=== PATIENT | female | born 2005 | race Caucasian/White ===

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

== ENCOUNTER → 2023-09-10 | Outpatient (REF) | LOC: M EMP 10:57 | PROVIDERS: ATTEND Family Medicine | DX: Z11.52 Encounter for screening for COVID-19 (principal) ==

== ENCOUNTER 2023-12-29 10:04 | Emergency (ER) | payer BC, OTHER ==
[~2023-12-29] VITALS: Ht 157.5 cm; Wt 102.8 kg
[~2023-12-29 10:04] MED LIST changes: +AMPH1CAP16; +ARIP1TAB6; +CLON0.5T2; +TEST200I14; +TRAZ-257
[2023-12-29] MEDS ORDERED: BENZ-18 (11:28)
[2023-12-29 13:00] VITALS: BP 121/81; TEMP 97.7; O2SAT 100
== END 2023-12-29 13:01 | disposition home or self-care (01) ==
LOC: M ED 10:04
DX: J06.9 Acute upper respiratory infection, unspecified (principal); F90.9 Attention-deficit hyperactivity disorder, unspecified type; F43.10 Post-traumatic stress disorder, unspecified; F41.9 Anxiety disorder, unspecified; F32.A Depression, unspecified; F64.0 Transsexualism; Z87.891 Personal history of nicotine dependence; Z91.018 Allergy to other foods; Z79.899 Other long term (current) drug therapy

== ENCOUNTER 2024-01-27 04:36 | Emergency (ER) | payer BC, OTHER ==
[~2024-01-27] VITALS: Ht 157.5 cm; Wt 100.0 kg
[~2024-01-27 04:36] MED LIST changes: +BENZ-18
[2024-01-27] MEDS: ONDANSETRON 4MG 2ML VIAL IV ONE (06:24)
[2024-01-27] MEDS: KETOROLAC 30 MG/ML 1ML VIAL IV ONE (06:26)
[2024-01-27 06:36] LABS: BASO # 0.1 10^3/uL (0.0-0.2); BASO % 0.7 % (0.0-1.0); EOS # 0.1 10^3/uL (0.0-0.5); EOS % 1.1 % (0.0-3.0); HEMATOCRIT 47.3 % (42.0-52.0); HEMOGLOBIN 15.6 g/dl (13.5-17.5); LYMPH # 2.1 10^3/uL (1.5-5.0); LYMPH % 24.7 % (24.0-44.0); MEAN CORPUSCULAR HEMOGLOBIN 31.8 pg (27.0-33.0); MEAN CORPUSCULAR VOLUME 96.5 fl (80.0-96.0); MONO # 0.7 10^3/uL (0.0-0.8); MONO % 7.8 % (2.0-8.0); NEUTROPHILS # 5.5 10^3/uL (1.5-8.5); NEUTROPHILS % 65.3 % (36.0-66.0); PLATELET COUNT, AUTOMATED 210 10^3/uL (150-450); WHITE BLOOD COUNT 8.5 10^3/uL (4.0-10.0)
[2024-01-27] MEDS ORDERED: ISOVUE-370 76% 100ML VIAL As Ordered ONE (06:42)
[2024-01-27 07:23] LABS: HCG, SERUM QUALITATIVE NEGATIVE
[2024-01-27] MEDS ORDERED: IBUP200T46 PO (08:13)
[2024-01-27] MEDS ORDERED: MORPHINE 2 MG/ML 1ML VIAL IV ONE (08:20)
[2024-01-27] MEDS: ACETAMINOPHEN 500 MG TAB PO ONE (08:35)
[2024-01-27 09:08] VITALS: BP 122/65; TEMP 98.5; O2SAT 100
[2024-01-27] MEDS ORDERED: KETO10TAB PO (22:19)
== END 2024-01-27 09:31 | disposition home or self-care (01) ==
LOC: EDSEX 04:36 → M ED 04:36 → EDBD 04:36 → M ED 09:31
DX: R10.31 Right lower quadrant pain (principal); Z91.018 Allergy to other foods; Z79.2 Long term (current) use of antibiotics; Z79.899 Other long term (current) drug therapy
CPT/HCPCS: 74177; 80047; 81001; 83605; 84703; 85025; 96374; 96375; 99284; J1885; J2405; Q9967

== ENCOUNTER 2024-01-27 19:46 | Emergency (ER) | payer OTHER ==
[~2024-01-27] VITALS: Ht 157.5 cm; Wt 100.0 kg
[~2024-01-27 19:46] MED LIST changes: +IBUP200T46 PO
[2024-01-27] MEDS ORDERED: KETO10TAB PO (22:19)
[2024-01-27 22:27] VITALS: BP 129/59; TEMP 98.4; O2SAT 97
[2024-01-27] MEDS: KETOROLAC TROMETHAMINE 10 MG TAB PO ONE (22:28)
== END 2024-01-27 22:34 | disposition home or self-care (01) ==
LOC: M ED 19:46
DX: R10.31 Right lower quadrant pain (principal); Z91.018 Allergy to other foods; Z79.2 Long term (current) use of antibiotics; Z79.899 Other long term (current) drug therapy

== ENCOUNTER → 2024-03-23 | Outpatient (REF) | payer OTHER ==
[~2024-03-23] MED LIST changes: +KETO10TAB PO
[2024-03-23 15:59] LABS: HEMATOCRIT 44.7 % (42.0-52.0); HEMOGLOBIN 15.1 g/dl (13.5-17.5); MEAN CORPUSCULAR HEMOGLOBIN 31.8 pg (27.0-33.0); MEAN CORPUSCULAR HGB CONC 33.8 g/dl (32.0-36.5); MEAN CORPUSCULAR VOLUME 94.1 fl (80.0-96.0); PLATELET COUNT, AUTOMATED 243 10^3/uL (150-450); RED BLOOD COUNT 4.75 10^6/uL (4.30-6.10); WHITE BLOOD COUNT 10.1 10^3/uL (4.0-10.0)
== END ==
LOC: M LAB REF 15:37
PROVIDERS: ATTEND Physician Assistant Medical
DX: F64.0 Transsexualism (principal)

== ENCOUNTER 2024-05-05 05:46 | Emergency (ER) | payer OTHER ==
[~2024-05-05] VITALS: Ht 160 cm; Wt 112.7 kg
[2024-05-05] MEDS: ONDANSETRON 4MG 2ML VIAL IV ONE (10:13)
[2024-05-05] MEDS: PANTOPRAZOLE 40MG VIAL IV ONE (10:13)
[2024-05-05 10:54] LABS: BASO # 0.1 10^3/uL (0.0-0.2); BASO % 0.5 % (0.0-1.0); EOS # 0.1 10^3/uL (0.0-0.5); EOS % 1.3 % (0.0-3.0); HEMATOCRIT 44.9 % (42.0-52.0); HEMOGLOBIN 15.3 g/dl (13.5-17.5); LYMPH # 2.1 10^3/uL (1.5-5.0); LYMPH % 20.6 % (24.0-44.0); MEAN CORPUSCULAR HGB CONC 34.1 g/dl (32.0-36.5); MEAN CORPUSCULAR VOLUME 90.9 fl (80.0-96.0); MONO # 0.7 10^3/uL (0.0-0.8); MONO % 6.9 % (2.0-8.0); NEUTROPHILS # 7.3 10^3/uL (1.5-8.5); NEUTROPHILS % 70.2 % (36.0-66.0); PLATELET COUNT, AUTOMATED 292 10^3/uL (150-450); RED BLOOD COUNT 4.94 10^6/uL (4.30-6.10); WHITE BLOOD COUNT 10.3 10^3/uL (4.0-10.0)
[2024-05-05 11:17] LABS: ALBUMIN 3.3 G/DL (3.2-5.2); ALKALINE PHOSPHATASE 98 U/L (40-129); ALT/SGPT 22 U/L (7.0-40); AST/SGOT 13 U/L (<34); BILIRUBIN,DIRECT 0.2 MG/DL (<0.4); BILIRUBIN,TOTAL 0.5 MG/DL (0.3-1.2); BLOOD UREA NITROGEN 10 MG/DL (9-23); CALCIUM LEVEL 8.9 MG/DL (8.5-10.1); CARBON DIOXIDE LEVEL 26 MMOL/L (20-31); CHLORIDE LEVEL 105 MMOL/L (98-107); CREATININE FOR GFR 0.78 MG/DL (0.70-1.30); GLUCOSE, FASTING 87 MG/DL (60-100); SODIUM LEVEL 142 MMOL/L (136-145); TOTAL PROTEIN 6.9 G/DL (5.7-8.2)
[2024-05-05 12:00] VITALS: BP 113/70; TEMP 98.2
[2024-05-05] MEDS ORDERED: BENZ200C70 PO (12:14)
[2024-05-05] MEDS ORDERED: AMOX875T PO (12:14)
[2024-05-05 12:16] VITALS: O2SAT 97
== END 2024-05-05 12:31 | disposition home or self-care (01) ==
LOC: M ED 05:46
DX: J02.9 Acute pharyngitis, unspecified (principal); J04.0 Acute laryngitis; Z91.018 Allergy to other foods; Z79.2 Long term (current) use of antibiotics; Z79.899 Other long term (current) drug therapy
CPT/HCPCS: 71046; 80048; 80076; 85025; 87486; 87581; 87633; 87798; 96374; 99284; J2405; J2470

== ENCOUNTER 2024-09-16 15:00 | Outpatient (RCR) | payer OTHER ==
[~2024-09-16 15:00] MED LIST changes: +AMOX875T PO; +BENZ200C70 PO; +BUPR-670 PO; -BUPR1TAB52 PO; +MIRT1TAB PO; +PRAZ1CAP
== END 2024-09-24 ==
LOC: M PT 15:00
PROVIDERS: ATTEND Obstetrics & Gynecology
DX: R10.2 Pelvic and perineal pain (principal)

== ENCOUNTER 2025-01-14 16:21 | Emergency (ER) | payer OTHER ==
[~2025-01-14] VITALS: Ht 157.5 cm; Wt 116.1 kg
[2025-01-14] MEDS ORDERED: CEPH500C (16:37)
[2025-01-14] MEDS ORDERED: OXYC-517 (16:37)
[2025-01-14 17:58] LABS: BASO # 0.0 10^3/uL (0.0-0.2); BASO % 0.4 % (0.0-1.0); EOS # 0.0 10^3/uL (0.0-0.5); EOS % 0.4 % (0.0-3.0); LYMPH # 1.9 10^3/uL (1.5-5.0); LYMPH % 23.6 % (24.0-44.0); MONO # 0.5 10^3/uL (0.0-0.8); MONO % 5.6 % (2.0-8.0); NEUTROPHILS # 5.6 10^3/uL (1.5-8.5); NEUTROPHILS % 69.6 % (36.0-66.0); PLATELET COUNT, AUTOMATED 241 10^3/uL (150-450)
[2025-01-14 18:59] VITALS: BP 128/79; TEMP 98.3; O2SAT 100
== END 2025-01-14 19:04 | disposition home or self-care (01) ==
LOC: EDSEX 16:21 → M ED 18:23
DX: T81.31XA Disruption of external operation (surgical) wound, not elsewhere classified, initial encounter (principal); F41.9 Anxiety disorder, unspecified; F32.A Depression, unspecified; F90.9 Attention-deficit hyperactivity disorder, unspecified type; Z91.018 Allergy to other foods